=== PATIENT | female | born 1990 | race Caucasian/White ===

== ENCOUNTER → 2017-02-22 | Outpatient (CLI) | payer BC ==
--- NOTE | 2017-02-22 08:39 | DIAGNOSTIC IMAGING REPORT ---
BARI[facility] AIR ROUTINE CLINICAL HISTORY: CHANGE IN BOWEL HABITS,RECTAL BLEEDING COMPARISON STUDY: None FLUOROSCOPY TIME: 2.5 minutes. FINDINGS: Colon is unremarkable in overall course and caliber. Colonic mucosa is within normal limits. There are no filling defects. Cecum fills well. IMPRESSION: Normal study The above report was generated using voice recognition software. It may contain grammatical, syntax or spelling errors. Electronically signed by: Brandon Ring M.D. 02/22/2017 8:38 AM Dictated Date/Time: 02/22/2017 8:35 AM
== END | disposition home or self-care (01) ==
LOC: C.RAD 07:42
PROVIDERS: ATTEND Family Medicine
DX: K62.5 Hemorrhage of anus and rectum (principal)